=== PATIENT | female | born 1945 | race Caucasian/White ===

== ENCOUNTER 2021-12-07 08:27 | Outpatient (CLI) | payer MEDICARE | END 2021-12-07 08:28 | disposition home or self-care (01) | LOC: RAD 08:27 | PROVIDERS: ATTEND Internal Medicine Critical Care Medicine | DX: R06.09 Other forms of dyspnea (principal) | CPT/HCPCS: 71046 ==

== ENCOUNTER 2022-11-29 13:05 | Outpatient (CLI) | payer MEDICARE ==
[~2022-11-29 13:05] MED LIST: Iopamidol 370 76% 100 ML VIAL ONE
== END 2022-11-29 13:06 | disposition home or self-care (01) ==
LOC: CT 13:05
PROVIDERS: ATTEND Internal Medicine Hematology & Oncology
DX: C34.12 Malignant neoplasm of upper lobe, left bronchus or lung (principal); R91.1 Solitary pulmonary nodule; I25.10 Atherosclerotic heart disease of native coronary artery without angina pectoris; M81.0 Age-related osteoporosis without current pathological fracture; J43.2 Centrilobular emphysema; M35.9 Systemic involvement of connective tissue, unspecified; G62.9 Polyneuropathy, unspecified; D50.9 Iron deficiency anemia, unspecified
CPT/HCPCS: 71260; 82565; Q9967

== ENCOUNTER 2022-12-12 10:49 | Outpatient (CLI) | payer MEDICARE | END 2022-12-12 10:50 | disposition home or self-care (01) | LOC: RAD 10:49 | PROVIDERS: ATTEND Internal Medicine Critical Care Medicine | DX: R06.00 Dyspnea, unspecified (principal) | CPT/HCPCS: 71046 ==

== ENCOUNTER → 2022-12-14 | Outpatient (CLI) | payer MEDICARE | LOC: PET 11:00 | PROVIDERS: ATTEND Internal Medicine Hematology & Oncology | DX: C34.12 Malignant neoplasm of upper lobe, left bronchus or lung (principal); R91.1 Solitary pulmonary nodule | CPT/HCPCS: 78815; A9552 ==

== ENCOUNTER 2023-05-21 23:29 | Inpatient (IN) | payer MEDICARE ==
[2023-05-21] MEDS ORDERED: dilTIAZem 25 MG/5 ML VIAL ONE (23:46)
[2023-05-21 23:53] LABS: Actual Bicarbonate (HCO3a) 23.5 mEq/L (22-28); CO2 Tension 42.6 mmHg (35.0-45.0); O2 Tension (PaO2), arterial 75.2 mmHg (> 70.0); pH, Arterial 7.359 (7.35-7.45)
[2023-05-21 23:54] LABS: Calcium, Ionized (arterial) 1.18 mmol/L (1.12-1.30); Carboxyhemoglobin (COHb) 2.5 gm% (0.0-3.0); Hematocrit-ABG 46 % (36.0-47.0); Hemoglobin (Hb) 15.8 g/dL (12.0-16.0); Potassium - ABG Lab 3.52 mmol/L (3.70-5.30)
[2023-05-21 23:55] LABS: Analyzer IN Cardio ER; Puncture Site RRA
[2023-05-22 00:12] LABS: #Basophils 0.1 thou/uL (0.0-0.2); #Eosinphils 0.2 thou/uL (0.0-0.7); #Monocytes 0.8 thou/uL (0.11-0.59); #Neutrophils 6.9 thou/uL (1.40-6.50); %Basophils 0.4 % (0.0-1.0); %Eosinophils 1.7 % (0.0-10.0); %Lymphocytes 36.1 % (21.0-51.0); %Monocytes 6.3 % (0.0-10.0); %Neutrophils 55.2 % (42.0-75.0); Hematocrit 44.5 % (36.0-47.0); Hemoglobin 15.5 g/dL (12.0-16.0); Mean Corpuscular HGB CONC 34.8 g/dL (32.0-36.0); Mean Corpuscular Hemoglobin 31.7 pg (27.0-31.0); Mean Platelet Volume 8.4 fL (7.4-10.4); Platelet Count 248 10x3/uL (130-400); RBC Distribution Width 13.2 % (11.5-14.5); Red Blood Cell (RBC) Count 4.89 mill/uL (4.20-5.40); White Blood Cell (WBC) Count 12.5 10x3/uL (4.8-10.8)
[2023-05-22 00:26] LABS: Prothrombin Time 13.1 sec (12.0-14.7)
[2023-05-22 00:28] LABS: D-Dimer Test 0.5 *mcg/mL (0.27-0.43)
[2023-05-22 00:34] LABS: CRP (Inflammatory) Less than 0.50 mg/dL (= or < 0.5)
[2023-05-22 00:38] LABS: ALT (SGPT) 21 U/L (8-55); AST (SGOT) 22 U/L (5-34); Alkaline Phosphatase 97 U/L (40-110); Anion Gap 18 mmol/L (10-20); BUN (Urea Nitrogen) 9 mg/dL (9.8-20.1); Bilirubin, Total 0.5 mg/dL (0.2-1.2); Calc. Creatinine Clearance 0 mL/min (70-130); Calcium 9.5 mg/dL (7.8-10.44); Carbon Dioxide 25 mmol/L (23-31); Chloride 101 mmol/L (98-107); Estimated GFR 61; Globulin 2.9 g/dL (2.4-3.5); Glucose 161 mg/dL (83-110); Potassium 3.5 mmol/L (3.5-5.1); Protein, Total 7.9 g/dL (5.8-8.1); Sodium 140 mmol/L (136-145)
[2023-05-22 01:30] LABS: Troponin I Less than 0.010 ng/mL (< 0.028)
[2023-05-22 03:15] LABS: Lactic Acid 1.2 mmol/L (0.5-2.2)
[2023-05-22] MEDS ORDERED: Ondansetron ODT 4 MG TAB PO PRN (04:04)
[2023-05-22] MEDS ORDERED: Acetaminophen 325 MG TAB PO PRN (04:04)
[2023-05-22] MEDS ORDERED: Acetaminophen 650 MG Suppository PR PRN (04:04)
[2023-05-22] MEDS ORDERED: Ondansetron PF 4 MG/2 ML Vial IVP PRN (04:04)
[2023-05-22 04:53] VITALS: BMI 21.9
[2023-05-22] MEDS ORDERED: Ipratropium/Albuterol 3 ML NEB NEB PRN (06:26)
[2023-05-22] MEDS: Ipratropium/Albuterol 3 ML NEB NEB SCH ×5 (07:07→22:41)
[2023-05-22] MEDS ORDERED: Iopamidol-370 76% 500 ML MDV (1 ML CHARGE) ONE (08:35)
[2023-05-22] MEDS ORDERED: fentaNYL PF 100 MCG/2 ML SYRINGE ONE (14:06)
[2023-05-22] MEDS ORDERED: Sodium Chloride 0.9% 500 ML IV SCH (21:30)
[2023-05-22] MEDS: Melatonin 3 MG TAB PO PRN (22:37)
[2023-05-23] MEDS: Ipratropium/Albuterol 3 ML NEB NEB SCH ×6 (02:30→23:46)
[2023-05-23] MEDS: Melatonin 3 MG TAB PO PRN (21:30)
[2023-05-24] MEDS: Ipratropium/Albuterol 3 ML NEB NEB SCH ×2 (03:24→08:15)
[2023-05-24 08:29] LABS: #Eosinphils 0.2 thou/uL (0.0-0.7); #Monocytes 0.7 thou/uL (0.11-0.59); #Neutrophils 4.9 thou/uL (1.40-6.50); %Basophils 0.3 % (0.0-1.0); %Eosinophils 2.5 % (0.0-10.0); %Lymphocytes 21.1 % (21.0-51.0); %Neutrophils 66.8 % (42.0-75.0); Hematocrit 36.1 % (36.0-47.0); Hemoglobin 12.3 g/dL (12.0-16.0); Mean Corpuscular HGB CONC 34.1 g/dL (32.0-36.0); Mean Corpuscular Hemoglobin 31.7 pg (27.0-31.0); Mean Platelet Volume 8.4 fL (7.4-10.4); Platelet Count 174 10x3/uL (130-400); RBC Distribution Width 13.2 % (11.5-14.5); Red Blood Cell (RBC) Count 3.88 mill/uL (4.20-5.40); White Blood Cell (WBC) Count 7.3 10x3/uL (4.8-10.8)
[2023-05-24 08:51] LABS: Anion Gap 11 mmol/L (10-20); BUN (Urea Nitrogen) 7 mg/dL (9.8-20.1); Calc. Creatinine Clearance 56 mL/min (70-130); Calcium 8.9 mg/dL (7.8-10.44); Carbon Dioxide 26 mmol/L (23-31); Chloride 102 mmol/L (98-107); Estimated GFR 89; Glucose 111 mg/dL (83-110); Potassium 3.7 mmol/L (3.5-5.1); Sodium 135 mmol/L (136-145)
[2023-05-24] MEDS ORDERED: Calcium Carbonate 500 MG TAB PO SCH (09:00)
[2023-05-24] MEDS ORDERED: Rosuvastatin 10 MG TAB PO SCH (09:00)
[2023-05-24] MEDS ORDERED: Clopidogrel Bisulfate 75 MG TAB PO SCH (09:00)
[2023-05-24] MEDS ORDERED: Aspirin Chewable 81 MG TAB PO SCH (09:00)
[2023-05-24 20:50] VITALS: BP 136/78; TEMP 98.1
== END 2023-05-24 20:20 | disposition home or self-care (01) | DRG 205 ==
LOC: ERS 23:29 → SURG A 05-22 03:23 → OBSVTOIN 05-23 14:04
PROVIDERS: ADMIT Student in an Organized Health Care Education/Training Program; ATTEND Internal Medicine
PROC: 4A033R1 Measurement of Arterial Saturation, Peripheral, Percutaneous Approach (ICD-10-PCS; principal; 2023-05-21)
DX: T17.598A Other foreign object in bronchus causing other injury, initial encounter (principal); J96.01 Acute respiratory failure with hypoxia; E87.20 Acidosis, unspecified; E78.5 Hyperlipidemia, unspecified; I25.10 Atherosclerotic heart disease of native coronary artery without angina pectoris; M32.9 Systemic lupus erythematosus, unspecified; F17.210 Nicotine dependence, cigarettes, uncomplicated; M06.9 Rheumatoid arthritis, unspecified; J43.9 Emphysema, unspecified; D72.829 Elevated white blood cell count, unspecified; Z66 Do not resuscitate; Z53.29 Procedure and treatment not carried out because of patient's decision for other reasons; W44.8XXA Other foreign body entering into or through a natural orifice, initial encounter; Y92.9 Unspecified place or not applicable; Z99.81 Dependence on supplemental oxygen; I25.2 Old myocardial infarction; Z95.5 Presence of coronary angioplasty implant and graft; Z90.710 Acquired absence of both cervix and uterus; Z98.890 Other specified postprocedural states; Z91.040 Latex allergy status; Z88.5 Allergy status to narcotic agent; Z91.09 Other allergy status, other than to drugs and biological substances; Z79.51 Long term (current) use of inhaled steroids; Z79.899 Other long term (current) drug therapy; Z79.82 Long term (current) use of aspirin
CPT/HCPCS: 36415; 36600; 71045; 71275; 80048; 80053; 82805; 83605; 83735; 83880; 84484; 85025; 85379; 85610; 86140; 87040; 93005; 94640; G0378; J7030; J7620; Q9967

== ENCOUNTER 2023-06-05 12:51 | Outpatient (CLI) | payer MEDICARE | END 2023-06-05 12:52 | disposition home or self-care (01) | LOC: BICCT 12:51 | PROVIDERS: ATTEND Internal Medicine Critical Care Medicine | DX: T17.908D Unspecified foreign body in respiratory tract, part unspecified causing other injury, subsequent encounter (principal) | CPT/HCPCS: 71250 ==

== ENCOUNTER 2023-07-25 09:23 | Outpatient (CLI) | payer MEDICARE ==
[2023-07-25] MEDS ORDERED: Iopamidol 370 76% 100 ML VIAL ONE (10:52)
== END 2023-07-25 09:24 | disposition home or self-care (01) ==
LOC: BICCT 09:23
PROVIDERS: ATTEND Radiology Radiation Oncology
DX: C34.12 Malignant neoplasm of upper lobe, left bronchus or lung (principal)
CPT/HCPCS: 71260; 82565

== ENCOUNTER 2024-01-29 08:43 | Outpatient (CLI) | payer MEDICARE | END 2024-01-29 08:44 | disposition home or self-care (01) | LOC: CT 08:43 | PROVIDERS: ATTEND Radiology Radiation Oncology | DX: C34.12 Malignant neoplasm of upper lobe, left bronchus or lung (principal) | CPT/HCPCS: 71260; 82565 ==

== ENCOUNTER 2024-07-10 12:47 | Outpatient (CLI) | payer MEDICARE | END 2024-07-10 12:48 | disposition home or self-care (01) | LOC: CT 12:47 | PROVIDERS: ATTEND Radiology Radiation Oncology | DX: C34.12 Malignant neoplasm of upper lobe, left bronchus or lung (principal) | CPT/HCPCS: 36415; 71260; 82565 ==

== ENCOUNTER 2025-06-03 08:54 | Outpatient (CLI) | payer MEDICARE ==
[2025-06-03 09:22] LABS: Estimated GFR - POC 57.0
[2025-06-03] MEDS ORDERED: Iopamidol 370 76% 100 ML VIAL ONE (11:08)
== END 2025-06-03 08:55 | disposition home or self-care (01) ==
LOC: CT 08:54
PROVIDERS: ATTEND Radiology Radiation Oncology
DX: C34.92 Malignant neoplasm of unspecified part of left bronchus or lung (principal); R91.1 Solitary pulmonary nodule; J98.4 Other disorders of lung
CPT/HCPCS: 36415; 71260; 82565; Q9967